=== PATIENT | female | born 1990 | race Native Hawaiian/Other Pacific Islander ===

== ENCOUNTER 2023-03-02 13:23 | Emergency (ER) | payer OTHER ==
[~2023-03-02] VITALS: Ht 152.4 cm; Wt 70.3 kg
== END 2023-03-02 16:04 | disposition home or self-care (01) ==
LOC: ED 13:23
DX: J40 Bronchitis, not specified as acute or chronic (principal); T78.40XA Allergy, unspecified, initial encounter
CPT/HCPCS: 81025; 99283